=== PATIENT | female | born 1990 | race Two or more races ===

== ENCOUNTER 2018-06-20 15:00 | Inpatient (IN) | payer OTHER ==
[~2018-06-20] VITALS: Ht 160 cm; Wt 95.7 kg
[2018-07-03] MEDS ORDERED: PRENATAL TABLE1 EAC4 PO (08:14)
[2018-07-03] MEDS ORDERED: FOLIC ACID1 MG PO (08:14)
== END 2018-07-05 10:48 | disposition home or self-care (01) | DRG 807 ==
LOC: LDR 07-03 07:44 → OB/GYN 07-03 11:33 → LDR 07-05 15:00
PROVIDERS: ADMIT Obstetrics & Gynecology
PROC: 10E0XZZ Delivery of Products of Conception, External Approach (ICD-10-PCS; principal; 2018-07-03)
PROC: 0UQGXZZ Repair Vagina, External Approach (ICD-10-PCS; 2018-07-03)
PROC: 3E033VJ Introduction of Other Hormone into Peripheral Vein, Percutaneous Approach (ICD-10-PCS; 2018-07-03)
PROC: 4A1HXCZ Monitoring of Products of Conception, Cardiac Rate, External Approach (ICD-10-PCS; 2018-07-03)
DX: O71.4 Obstetric high vaginal laceration alone (principal); Z37.0 Single live birth; Z3A.39 39 weeks gestation of pregnancy

== ENCOUNTER 2021-07-25 14:48 | Emergency (ER) | payer OTHER ==
[~2021-07-25] VITALS: Ht 160 cm; Wt 74.8 kg
[~2021-07-25 14:48] MED LIST: FOLIC ACID1 MG PO; PRENATAL TABLE1 EAC4 PO
== END 2021-07-25 22:00 | disposition home or self-care (01) ==
LOC: ER 14:48
DX: O20.9 Hemorrhage in early pregnancy, unspecified (principal); Z3A.01 Less than 8 weeks gestation of pregnancy